=== PATIENT | male | born 1985 | race Caucasian/White ===

== ENCOUNTER 2019-04-21 12:34 | Day surgery (SDC) | payer MEDICAID ==
[2019-04-16 09:48] LABS: Urine WBC None Seen /hpf (0 - 3)
[2019-04-16 09:54] LABS: Basophils # (auto) 0.1 uL; Eosinophils # (auto) 0.1 uL; Eosinophils % (auto) 0.7 % (0.0-7.0); Hematocrit 46.2 % (41.0-53.0); Hemoglobin 15.9 g/dL (13.5-17.5); Lymphocytes # (auto) 1.6 uL; Lymphocytes % (auto) 18.3 % (10.0-50.0); Mean Corpuscular Hemoglobin 28.4 pg (28.0-32.0); Mean Corpuscular Hgb Conc. 34.4 g/dL (32.0-36.0); Mean Corpuscular Volume 82.4 fL (80.0-100.0); Monocytes # (auto) 0.5 uL; Monocytes % (auto) 6.2 % (0.0-12.0); Neutrophils # (auto) 6.3 uL; Neutrophils % (auto) 73.8 % (37.0-80.0); Nucleated Red Blood Cells % 1.4 %; Platelet Count (auto) 265 10^3/uL (140-450); Red Blood Cells 5.61 10^6/uL (4.5-5.90); Red Cell Distribution Width 13.9 % (11.8-14.3); White Blood Cell 8.5 10^3/uL (4.4-10.8)
[2019-04-16 10:06] LABS: Urine Bacteria NONE SEEN /hpf (None Seen); Urine Blood Negative /uL (Negative); Urine Specific Gravity 1.016 (1.001-1.035)
[2019-04-16 10:09] LABS: Albumin 4.3 g/dL (3.4-5.0); Calcium 9.4 mg/dL (8.5-10.1)
[2019-04-16 10:13] LABS: BUN/Creatinine Ratio 11.1; Bilirubin, Total 0.5 mg/dL (0.2-1.0); Total Protein 7.7 g/dL (6.4-8.2)
[2019-04-16 11:54] LABS: INR 0.92 (0.9-1.15)
[~2019-04-21] VITALS: Ht 180.3 cm; Wt 104.3 kg
[~2019-04-21 12:34] MED LIST: HYDR-392 PO; LISI40TA PO
[2019-04-21] MEDS ORDERED: ROCURONIUM 10MG/ML 10ML VIAL IV ONE (13:19)
[2019-04-21] MEDS ORDERED: LIDOCAINE 2% (LOCAL ANESTH.) PF 5ml SDV ONE ×2 (13:19→16:19)
[2019-04-21] MEDS ORDERED: LIDOCAINE HCL 2 %PF INJ 10ML AMP IJ ONE (13:30)
[2019-04-21] MEDS ORDERED: LIDOCAINE 1% HCL (LOCAL ANESTH.) INJ 20ML MDV ONE (13:30)
[2019-04-21] MEDS ORDERED: BUPIVACAINE HCL 0 ML ONE (13:31)
[2019-04-21] MEDS ORDERED: SUCCINYLCHOLINE CHLORIDE 20 MG/ML 10ML VIAL IV ONE (13:45)
[2019-04-21] MEDS ORDERED: ceFAZolin 1GM/50ML 100 ML IV ONE (13:46)
[2019-04-21] MEDS ORDERED: MIDAZOLAM HCL 1MG/1ML-2 ML VIAL ONE ×2 (14:00→15:19)
[2019-04-21] MEDS ORDERED: METOCLOPRAMIDE HCL 5MG/ml INJ 2ml VIAL ONE (14:01)
[2019-04-21] MEDS ORDERED: PROPOFOL 10 MG/ML 20 ML IV ONE ×2 (14:03→16:19)
[2019-04-21] MEDS ORDERED: GLYCOPYRROLATE 0.2 MG/ML 1ML VIAL ONE (14:05)
[2019-04-21] MEDS ORDERED: PROPOFOL 100 ML IV ONE (14:08)
[2019-04-21] MEDS ORDERED: fentaNYL CITRATE 100 MCG/2 ML VL ONE ×2 (14:10→15:50)
[2019-04-21] MEDS ORDERED: LIDOCAINE HCL 2% TOP JELLY 5ML TOP ONE (14:17)
[2019-04-21] MEDS ORDERED: KETAMINE HCL 1 ML ONE (14:20)
[2019-04-21] MEDS ORDERED: hydrALAZINE HCL 20 MG/ML VL IV PRN (14:30)
[2019-04-21] MEDS ORDERED: ONDANSETRON HCL 4 MG/2 ML VIAL IV ONE (14:30)
[2019-04-21] MEDS ORDERED: NALOXONE HCL 0.4 MG/ML VIAL IV PRN (14:30)
[2019-04-21] MEDS ORDERED: SODIUM CHLORIDE LOCK 10 ML ONE (14:30)
[2019-04-21] MEDS ORDERED: PHENYLEPHRINE HCL 10 MG/ML VL ONE (14:30)
[2019-04-21] MEDS ORDERED: HYDROmorphone HCL 2 MG/ML VL IV PRN ×2 (14:30)
[2019-04-21 17:18] VITALS: BP 138/82
== END 2019-04-21 17:45 | disposition home or self-care (01) ==
LOC: SUR 12:34
PROVIDERS: ATTEND Podiatrist
DX: M25.371 Other instability, right ankle (principal); I10 Essential (primary) hypertension; G47.33 Obstructive sleep apnea (adult) (pediatric); Q66.89 Other specified congenital deformities of feet; Z79.899 Other long term (current) drug therapy; E66.01 Morbid (severe) obesity due to excess calories; Z68.32 Body mass index [BMI] 32.0-32.9, adult
CPT/HCPCS: 27698; 36415; 73600; 80053; 81001; 85025; 85610; 85730; J0330; J0690; J2001; J2250; J2370; J2704; J2765; J3010; 76001; J3490